=== PATIENT | female | born 1935 | race Hispanic/Latino ===

== ENCOUNTER 2018-01-01 18:03 | Inpatient (IN) | payer MEDICARE ==
[2018-01-01 18:38] LABS: Bilirubin Moderate (Negative); Blood, Urine Trace (Negative); Clarity CLEAR (Clear); Glucose, Urine (Dipstick) Negative (Negative); Leukocyte Small (Negative); Nitrite Negative (Negative); Protein, Urine (Dipstick) 100 mg/dL (Neg-Trace); Specific Gravity, Urine 1.018 (1.002-1.036)
[2018-01-01 18:40] LABS: Bacteria/HPF None Seen HPF (None Seen); Hyaline Casts/LPF 0-3 HYALINE CAST LPF (0-3 Hyaline); Pathc Cast-AUWi Flag 0.14 (0-2.49); Squamous Epithelial None Seen HPF (0-3); WBC/HPF 0-3 HPF (0-3)
[2018-01-01 18:49] LABS: CKMB 2.1 ng/mL (0-6.6); Troponin I Less than 0.010 ng/mL (< 0.028)
--- NOTE | 2018-01-01 18:49 | CT ---
CT BRAIN 01/01/18 HISTORY: Altered mental status. Noncontrast enhanced CT images of the brain obtained. Noncontrast enhanced CT images of the brain obt ained. There is mild cortical atrophy and deep white matter ischemic changes. No evidence of acute in tracranial masses, hemorrhages, strokes or contusions seen. IMPRESSION: Mild cortical atrophy, otherwise unremarkable CT brain. POS: [facility]
[2018-01-01 18:54] LABS: ALT (SGPT) 149 U/L (8-55); AST (SGOT) 99 U/L (5-34); Alkaline Phosphatase 247 U/L (40-150); Anion Gap 16 mmol/L (10-20); BUN (Urea Nitrogen) 15 mg/dL (9.8-20.1); Bilirubin, Total 4.5 mg/dL (0.2-1.2); Calc. Creatinine Clearance 0 mL/min (70-130); Calcium 9.5 mg/dL (7.8-10.44); Carbon Dioxide 26 mmol/L (23-31); Chloride 97 mmol/L (98-107); Estimated GFR-MDRD 74; Globulin 3.5 g/dL (2.4-3.5); Glucose 170 mg/dL (83-110); Potassium 3.8 mmol/L (3.5-5.1); Protein, Total 7.5 g/dL (6.0-8.3); Sodium 135 mmol/L (136-145)
[2018-01-01 18:56] LABS: Band 11 % (5-11); Hemoglobin 14.3 g/dL (12.0-16.0); Lymphocytes 3 % (21-51); MDiff Complete? YES; Mean Corpuscular Volume 94.3 fL (78.0-98.0); Mean Platelet Volume 9.5 fL (7.4-10.4); Monocytes 1 % (0-10); Neutrophil 85 % (42-75); PLT Morphology Comment Appears Adequate; Platelet Count 148 thou/uL (130-400); RBC Distribution Width 12.7 % (11.5-14.5); RBC Morphology Normal; Red Blood Cell (RBC) Count 4.45 mill/uL (4.20-5.40); White Blood Cell (WBC) Count 9.4 thou/uL (4.8-10.8)
--- NOTE | 2018-01-01 19:07 | RAD ---
AP VIEW CHEST: 01/01/18 HISTORY: Altered mental status. AP view chest is obtained and demonstrates the lungs to be well aerated. No evidence of active intrat horacic disease seen. No evidence of effusions, pneumonia or pneumothorax seen. IMPRESSION: Unremarkable AP view chest. POS: [facility]
[2018-01-01] MEDS ORDERED: Sodium Chloride 0.9% 100 ML ONE (20:14)
[2018-01-01] MEDS ORDERED: Piperacillin/Tazobactam 4.5 GM VIAL ONE (20:14)
--- NOTE | 2018-01-01 20:38 | ULT ---
RIGHT UPPER QUADRANT ULTRASOUND: 01/01/18 HISTORY: Abdominal pain. Sepsis, altered mental status. Elevated liver function enzymes. Multiple longitudinal and transverse images of the right upper quadrant of the abdomen is obtained us ing a multihertz curvilinear transducer. Real time and color flow images demonstrate moderate degree of intrahepatic biliary dilatation. The common bile duct is markedly dilated measuring 1.6 cm in diam eter. The gallbladder is enlarged and thickened with debris within it compatible with gallbladder sludge. P ericholecystic fluid is seen. Findings concerning for acute cholecystitis. The pancreas is unremarkable. The right kidney is unremarkable with no evidence of dilation or obstruction. IMPRESSION: 1. Findings concerning for cholecystitis with gallbladder sludge and pericholecystic fluid. 2. Common bile duct dilatation concerning for distal common bile duct calculus. The gallbladder wall is also thickened measuring 8 mm in thickness. POS: [facility]
[2018-01-01 22:42] VITALS: BMI 19.3
[2018-01-01] MEDS ORDERED: Senokot S 8.6-50 MG TAB PO PRN (22:51)
[2018-01-01] MEDS ORDERED: Bisacodyl 5 MG TAB PO PRN (22:51)
[2018-01-01] MEDS ORDERED: Acetaminophen 325 MG TAB PO PRN (22:51)
[2018-01-01] MEDS ORDERED: Ondansetron PF 4 MG/2 ML Vial IVP PRN (22:51)
[2018-01-01 23:21] LABS: Lactic Acid 1.4 mmol/L (0.5-2.2)
--- NOTE | 2018-01-01 23:21 | PDOC.EVN ---
Event Note - Event Note Event Note: h&p dictated [id number]
[2018-01-01] MEDS: Sodium Chloride 0.9% 1,000 ML IV SCH (23:45)
--- NOTE | 2018-01-01 23:55 | HP ---
PRIMARY CARE PHYSICIAN: The patient does not have a PCP. CHIEF COMPLAINT: Altered mental status. HISTORY OF PRESENT ILLNESS: This is an 82-year-old female who was brought in by family after a iyer e in mental status over the last 2 days. The patient herself is an extremely poor historian and unab le to provide much of a history. At the time of my evaluation, the patient's family has already left the bedside and so the history is predominantly derived from both the patient's ER record and also from the patient herself. It appears that the patient has family that typically checks in with her daily and at baseline, she l zaki home alone, is quite functional, and able to care for her own ADLs. She was brought in after warren alexander found her most recently "sprawled out on the couch" and providing nonsensical answers to their q uestions, which is atypical for her. In the Emergency Department, she has displayed more of the same behavior, although the patient's fami ly states that she is somewhat more lucid compared to when they first found her. In the Emergency Department, the patient has vague complaints of abdominal discomfort, but otherwise no focal complaints. REVIEW OF SYSTEMS: Essentially unable to obtain from the patient as she is an overall very poor hist orian. PAST MEDICAL HISTORY: The patient does not see a PCP and so therefore has no documented chronic medi aurora issues. PAST SURGICAL HISTORY: It appears that she has had wrist fractures in the past, but otherwise no lu geries. HOME MEDICATIONS: The patient does not take any home medications. ALLERGIES: The patient has no known drug allergies. FAMILY HISTORY: Significant for cancer, undetermined type; and myocardial infarction that is in the family. SOCIAL HISTORY: As per above. No alcohol, no tobacco, no illicit drug use. PHYSICAL EXAMINATION: GENERAL: The patient is awake, alert, conversant, verbalizes, answers yes or no somewhat appropriate ly, but is unable to provide much of a history. When asked to answer nonbinary questions, tends to g latrice either inappropriate or inaccurate answers. HEENT: Normocephalic, atraumatic. Dry mucous membranes. Equal ocular motions are intact. CARDIOVASCULAR: S1, S2. Faint 2/5 systolic ejection murmur at the right sternal border. No radiati on. Pulses 2+ bilateral upper extremities. No pitting pedal edema. RESPIRATORY: Reasonable air movement. No wheezes, rales, or rhonchi. ABDOMEN: Positive bowel sounds. Soft, nontender grossly to palpation. MUSCULOSKELETAL: Moving 4 extremities independently. LABORATORY DATA AND IMAGING: Significant for WBC 9.4, hemoglobin 14.3, hematocrit 42, platelets 148. Sodium 135, potassium 3.8, chloride 97, BUN 15, creatinine 0.75, glucose 170, lactic acid 3.2, calc ium 9.5, total bilirubin 4.5, AST 99, ALT 149, alkaline phosphatase 247. Troponin is less than 0.01. Total protein 7.5, albumin 4. UA is significant for an orange color, 100 of protein, trace blood, moderate bilirubin, 4 urobilinogen, small leukocyte esterase. IMAGIN. 01/01/[address] impression: "Mild cortical atrophy," otherwise unremarkable CT brain. 2. chest x-ray impression: Unremarkable AP view chest. 3. 01/01/2018 abdominal ultrasound impression: Findings concerning for cholecystitis with gallbladd er sludge and pericholecystic fluid. Common bile duct dilatation concerning for distal common bile d uct calculus. The gallbladder wall is also thickened measuring 8 mm in thickness. ASSESSMENT AND PLAN: An 82-year-old female being brought in for altered mental status. 1. Altered mental status with a broad differential. Concerned that it represents perhaps metabolic encephalopathy and/or delirium-type process on top of what the patient's family has been describing a s chronic dementia and increased forgetfulness over the last year. Initial CT of the brain has been otherwise negative. Continue with hydration, supportive management of suspected underlying issues. 2. Concern for cholecystitis. The patient does not have leukocytosis, but does have increased neutr ophilia and increased lactic acid with a concerning ultrasound of the abdomen imaging. I appreciate Gastroenterology consultation. I appreciate surgical consultation. The patient will be n.p.o. Con tinue with IV fluids. Empiric antibiotics with Zosyn at this point in time. Also, concern for trans aminitis. The patient will have a repeat lactic acid obtained and a CT of the abdomen with and witho ut oral contrast. 3. Elevated neutrophil. Please see the discussion above with empiric antibiotics, IV fluid, and oth erwise supportive management. We will repeat a lactic acid as well. 4. Concern for dementia raised by the patient's family. The patient without any acute CVA process a t this point in time. At the time of discharge, she will likely benefit from an outpatient further e xamination of her baseline neurological status. 5. Diet: As tolerated. Activity: Out of bed to a chair at least 3 times a day. Deep venous throm bosis prophylaxis with heparin. Thank you for asking me to care for the patient. For questions or concerns, contact me at [facility]. The patient's code status was discussed with her brother at bedside in the Emergency De partment by the ER team. The patient's brother is her medical power of rn mobile. The patient's brot her wishes that she be FULL CODE at this point in time.
[2018-01-02 00:01] LABS: Lipase Less than 4 U/L (8-78)
[2018-01-02 04:54] LABS: #Lymphocytes 0.2 thou/uL (1.20-3.40); #Monocytes 0.4 thou/uL (0.11-0.59); #Neutrophils 7.3 thou/uL (1.40-6.50); %Eosinophils 0.1 % (0.0-10.0); %Lymphocytes 2.7 % (21.0-51.0); %Monocytes 5.2 % (0.0-10.0); %Neutrophils 92.1 % (42.0-75.0); Hemoglobin 11.9 g/dL (12.0-16.0); Mean Corpuscular HGB CONC 33.2 g/dL (32.0-36.0); Mean Corpuscular Hemoglobin 31.6 pg (27.0-31.0); Mean Corpuscular Volume 95.3 fL (78.0-98.0); Mean Platelet Volume 9.5 fL (7.4-10.4); Platelet Count 118 thou/uL (130-400); RBC Distribution Width 12.7 % (11.5-14.5); Red Blood Cell (RBC) Count 3.77 mill/uL (4.20-5.40); White Blood Cell (WBC) Count 7.9 thou/uL (4.8-10.8)
[2018-01-02 05:06] LABS: ALT (SGPT) 98 U/L (8-55); AST (SGOT) 53 U/L (5-34); Albumin 3.1 g/dL (3.4-4.8); Alkaline Phosphatase 185 U/L (40-150); Anion Gap 12 mmol/L (10-20); BUN (Urea Nitrogen) 12 mg/dL (9.8-20.1); Bilirubin, Total 3.6 mg/dL (0.2-1.2); Calc. Creatinine Clearance 46 mL/min (70-130); Calcium 8.5 mg/dL (7.8-10.44); Carbon Dioxide 23 mmol/L (23-31); Chloride 105 mmol/L (98-107); Estimated GFR-MDRD 83; Globulin 2.6 g/dL (2.4-3.5); Glucose 126 mg/dL (83-110); Potassium 3.1 mmol/L (3.5-5.1); Protein, Total 5.7 g/dL (6.0-8.3); Sodium 137 mmol/L (136-145)
[2018-01-02] MEDS: Piperacillin/Tazobactam 3.375 GM in Sodium Chloride 0.9% 100 ML IVPB SCH ×4 (05:19→23:43)
--- NOTE | 2018-01-02 07:58 | CON ---
DATE OF CONSULTATION: 01/02/2018. REQUESTING PHYSICIAN: Dr. Ted Gardner. REASON FOR CONSULTATION: Choledocholithiasis. HISTORY OF PRESENT ILLNESS: Ms. Anayeli Pal is an 82-year-old woman who evidently lives independently and is quite active. She has no known past medical or surgical history, never sees a doctor. Evide ntly at baseline, her mental status is quite good. She was admitted to the hospital last night with reports of 2 days of altered mental status, lying around the house and speaking nonsense which were a t her family. The only other symptom she or they could describe is some vague abdominal pain over th e past couple of days as well and evidently she had had some episodes of vomiting. Upon presentation , she was found to have elevated LFTs with total bilirubin up to 4.5 and ALT up to 149. An abdominal ultrasound last night demonstrated changes consistent with cholecystitis as well as choledocholithia sis. She has common bile duct dilation to 1.6 cm with moderate intrahepatic biliary dilation, gallbl adder wall thickening to 8 mm and pericholecystic fluid with gallbladder sludge. CT head showed only mild cortical atrophy. She has been hemodynamically stable and afebrile. She was started on Zosyn. This morning, she does not really complaining of any abdominal pain, but she remains tender to palp ation of the right upper quadrant. PAST MEDICAL HISTORY: Nothing significant, as the patient never sees the doctor. ALLERGIES: No known drug allergies. OUTPATIENT MEDICATIONS: None. SOCIAL HISTORY: She lives independently with family nearby. She is evidently very active. No smoki ng, alcohol, or drug use. FAMILY HISTORY: Unknown cancer. REVIEW OF SYSTEMS: Full review of systems including constitutional, head, eyes, ears, nose, throat, GI, , cardiovascular, respiratory, musculoskeletal, and neurologic systems is negative except as no bon in the HPI. PHYSICAL EXAMINATION: VITAL SIGNS: Temperature 98.3, pulse 66, blood pressure 103/59, 98% oxygen saturation on room air. GENERAL: This is an 82-year-old woman lying in bed comfortably in no acute distress. SKIN: Mild jaundice, no rash visible or palpable. EYES: Mild scleral icterus. Extraocular movements intact. ENT: Mucous membranes moist, no oral lesions. LYMPH: No submandibular or supraclavicular lymphadenopathy. THYROID: Nontender to palpation. HEART: Regular rate and rhythm. LUNGS: Clear to auscultation bilaterally. ABDOMEN: Nondistended. Bowel sounds are hypoactive, but present. Soft. She is tender to palpation in the right upper quadrant. There is no guarding or rebound tenderness. EXTREMITIES: No peripheral edema. VESSELS: Radial pulses 2+ bilaterally. NEUROLOGICAL: Cranial nerves II through XII intact bilaterally. No focal deficits. MENTAL: She is oriented to person. She can give me her date of . She cannot tell me where she is or what day it is. She really does not recall any significant details of her recent history. LABORATORY STUDIES: WBC 7.9, hemoglobin 11.9, platelets 118, BUN 12, creatinine is 0.68, total bilir ubin initially 4.5, now down to 3.6, alkaline phosphatase initially 247, now down to 185, AST initial ly 99, now down to 53, ALT 149, now down to 98, albumin 3.1. Urinalysis showing 0-3 WBCs. IMAGING STUDIES: Abdominal ultrasound showed changes of cholecystitis with gallbladder sludge, peric holecystic fluid and gallbladder wall thickening. The common bile duct is dilated to 1.6 cm, which i s concerning for choledocholithiasis and there is moderate intrahepatic biliary dilation. CT of the head showed mild cortical atrophy. Chest x-ray showed no acute processes. ASSESSMENT AND PLAN: 1. Choledocholithiasis. 2. Cholecystitis. 3. Altered mental status, presumably secondary to acute cholecystitis. The patient's prominent elev ation in LFTs combined with the clear biliary dilation on imaging, all give a high probability for ch oledocholithiasis as well as cholecystitis. I discussed the situation with the patient's nephew on t he phone. I think the patient is going to end up needing a cholecystectomy with preoperative endosco pic retrograde cholangiopancreatography to clear the common bile duct. I discussed the potential ris ks of endoscopic retrograde cholangiopancreatography including post- endoscopic retrograde cholangiop ancreatography pancreatitis. She is in agreement that we should proceed. We are awaiting surgical c onsultation. I will go ahead and plan to take her for endoscopic retrograde cholangiopancreatography probably later today. Remain n.p.o. for now. Thank you for the consultation. Please call any time with questions or concerns.
[2018-01-02] MEDS: Famotidine/PF 20 mg/2ml Vial SLOW IVP SCH ×2 (08:51→20:15)
[2018-01-02] MEDS: Heparin 5,000 UNITS/ML VIAL SC SCH ×3 (08:51→20:16)
[2018-01-02] MEDS ORDERED: Prevnar 13-Val Conj/PF 0.5 ML SYRINGE IM ONE (09:00)
--- NOTE | 2018-01-02 09:12 | CT ---
CT OF ABDOMEN AND PELVIS PERFORMEDF WITH INTRAVNEOUS CONTRAST ENHANCEMENT: HISTORY: Abdominal pain. COMPARISON: Comparison a gallbladder ultrasound done earlier today. FINDINGS: Lung bases show chronic interstitial lung change. The liver has a heterogeneous appearance. I think some of this is probably related to a slightly art erial phase the contrast enhancement was obtained in. There is a suggestion of some minimal periport al edema. In addition, there is some intra- and extrahepatic ductal dilatation. The gallbladder is distended. There are edema changes associated with the gallbladder wall and there was probably some fluid within the gallbladder fossa. The proximal portion of the extrahepatic bile duct is very dilat ed at 13-14 mm and there is a soft tissue density seen within the mid common duct which measures 12 m m in size. It does not have the typical density we would expect of a gallstone of this size but appe ars fairly well formed and may represent a stone. The common duct does taper to a slightly more norm al-caliber distal to this. In addition, there is what appears to be a dilated cystic duct which appe ars to insert more distally on the common bile duct. The pancreas is severely atrophic. There is a cystic area within the body of this very atrophic pancreas which could be related to focal dilatation of the pancreatic duct. It measures 9 mm in size. Cystic neoplasm of the pancreas is not excluded and this would warrant followup. The spleen is prominent but within normal limits of size. It is of note that the pancreatic tail is relatively normal in appearance in relation to the head and body region of the pancreas. Within the expected location of the uncinate process, there is an air collection. I believe this is probably a diverticula arising from the duodenum. Right and left adrenal glands and right and left kidneys are normal in size. There is no significant periaortic or mesenteric adenopathy. A slightly swirled pattern to the mesenteric vessels is seen. No evidence of any type of obstruction. There may be some type of internal hernia present. CT OF PELVIS PERFORMED WITH COTNRAST ENHANCEMENT: A moderate amount of stool is seen in the rectosigmoid region. Calcified fibroid is noted within a s mall uterus. Appendix is difficult to definitively identify. IMPRESSION: 1. Fairly markedly distended gallbladder with what appears to be some gallbladder wall edema and int ra- and extrahepatic ductal dilatation. Within the extrahepatic bile duct at mid duct level is a 12 mm soft tissue-like density which could represent some tumefactive sludge versus a stone. You would expect a stone to be slightly denser given the size, but I would still not exclude this possibility. The duct does taper to a more normal-caliber distal to this. In addition, there appears to be mildl y dilated cystic duct and the cystic duct appears to have a lower insertion on the common bile duct. There is a small 1 cm fairly prominently enhancing lymph node adjacent to the gallbladder neck of in cidental note. 2. A very atrophic appearance to the pancreatic head and body region; however, there is a relatively normal appearance to the tail region of the pancreas. There is what I believe to be some chronic ar eas of cystic dilatation of the common bile duct. Most prominent is the 9-10 m area in the body serina on. I think a cystic neoplasm of the pancreas would be less likely, but not excluded. 3. Air density is seen in the expected area of the uncinate process. I believe this is probably wit hin the diverticulum. 4. Suggestion of some minimal periportal edema change. POS: [facility]
--- NOTE | 2018-01-02 10:02 | PDOC.PN ---
- Subjective Encounter Start Date: 01/02/18 Encounter Start Time: 07:30 Subjective: still has ruq pain, no nausea or itching - Objective Resuscitation Status: Resuscitation Status FULL:Full Resuscitation MAR Reviewed: Yes Vital Signs & Weight: Vital Signs (12 hours) Temp Pulse Resp BP Pulse Ox 01/02/18 08:57 96 01/02/18 08:20 98.4 F 62 16 125/54 L 96 01/02/18 04:00 98.3 F 66 18 103/59 L 98 Weight Weight 99 lb 3.328 oz Result Diagrams: 01/02/18 04:13 01/02/18 04:13 Phys Exam - Physical Examination HEENT: PERRLA, moist MMs Neck: no JVD, supple Respiratory: no wheezing, no rales Cardiovascular: RRR, no significant murmur Gastrointestinal: soft, no distention, positive bowel sounds ruq tenderness, localized guarding no rigidity Musculoskeletal: no edema, pulses present Neurological: non-focal, moves all 4 limbs Psychiatric: A&O x 3 Dx/Plan (1) Choledocholithiasis with acute cholecystitis Code(s): K80.42 - CALCULUS OF BILE DUCT W ACUTE CHOLECYSTITIS W/O OBSTRUCTION Status: Acute (2) Acute encephalopathy Code(s): G93.40 - ENCEPHALOPATHY, UNSPECIFIED Status: Acute (3) DM type 2 (diabetes mellitus, type 2) Status: Chronic Qualifiers: Diabetes mellitus keno terminal operator insulin use: without residential use Diabetes mellitus complication status: with unspecified complications Qualified Code(s) : E11.8 - Type 2 diabetes mellitus with unspecified complications (4) SIRS (systemic inflammatory response syndrome) Code(s): R65.10 - SIRS OF NON-INFECTIOUS ORIGIN W/O ACUTE ORGAN DYSFUNCTION Status: Acute - Plan is on zosyn, npo -: for ercp today, likely lap jordan in am -: gentle iv fluids -: t.bili is 3.6, has 92% neutrophils -: oob to chair as tolerated * . Review of Systems - Medications/Allergies Allergies/Adverse Reactions: Allergies Allergy/AdvReac Type Severity Reaction Status Date / Time No Known Drug Allergies Allergy Unknown Verified 01/01/18 23:35 Medications: Current Medications Acetaminophen (Tylenol) 650 mg PO Q4H PRN PRN Reason: Headache/Fever/Mild Pain (1-3) Bisacodyl (Dulcolax) 10 mg PO DAILYPRN PRN PRN Reason: Constipation Famotidine (Pepcid) 20 mg SLOW IVP Q12HR [facility] Last Admin: 01/02/18 08:51 Dose: 20 mg Heparin Sodium (Porcine) (Heparin) 5,000 units SC TID [facility] Last Admin: 01/02/18 08:51 Dose: Not Given Piperacillin Sod/Tazobactam (Sod 3.375 gm/ Sodium Chloride) 100 mls @ 200 mls/ hr IVPB Q6HR [facility] Last Admin: 01/02/18 05:19 Dose: 100 mls Sodium Chloride (Normal Saline 0.9%) 1,000 mls @ 100 mls/hr IV .Q10H [facility] Last Admin: 01/01/18 23:45 Dose: 1,000 mls Ondansetron HCl (Zofran) 4 mg IVP Q6H PRN PRN Reason: Nausea/Vomiting Senna/Docusate Sodium (Senokot S) 2 tab PO BIDPRN PRN PRN Reason: Constipation Sodium Chloride (Flush - Normal Saline) 10 ml IVF Q12HR [facility] Last Admin: 01/02/18 08:52 Dose: Not Given Sodium Chloride (Flush - Normal Saline) 10 ml IVF PRN PRN PRN Reason: Saline Flush Last Admin: 01/01/18 23:46 Dose: 10 ml
--- NOTE | 2018-01-02 11:21 | CON ---
DATE OF CONSULTATION: 01/02/2018 GENERAL SURGERY CONSULTATION CHIEF COMPLAINT: Right upper quadrant abdominal pain. HISTORY OF PRESENT ILLNESS: This is an 82-year-old female who reports a 4-5 day history of some abdo lucius pain, chills, fever. She was found to be very lethargic and brought in by her family last nigh t. PAST MEDICAL HISTORY: Significant for otherwise being healthy. PAST SURGICAL HISTORY: She has had a wrist fracture in the past. MEDICATIONS: None. ALLERGIES: No known drug allergies. FAMILY HISTORY: Cancer and myocardial infarctions. SOCIAL HISTORY: She lives alone. No tobacco or alcohol. PHYSICAL EXAMINATION: GENERAL: She is a thin, frail female, somewhat confused. VITAL SIGNS: Her temperature is 98.4, pulse 62, blood pressure 125/54, a thin female in minimal dist ress. HEENT: She is jaundiced. LUNGS: Clear. HEART: Regular rate and rhythm. ABDOMEN: Soft, very tender in the right upper quadrant with a positive Meadows sign. EXTREMITIES: Unremarkable. LABORATORY DATA AND IMAGING DATA: Her white count is 7.9, hemoglobin and hematocrit 11 and 36, plate let count of 118,000. Electrolytes show a bilirubin of 4.5, AST 99, ALT of 149, alkaline phosphatase 247. Sodium is 137, potassium 3.1. Amylase is normal. Ultrasound shows probable thickened gallbla dder wall with gallstones and sludge. There is pericholecystic fluid. Also, she has a dilated commo n bile duct with a probable common bile duct calculus. ASSESSMENT: Acute cholecystitis with choledocholithiasis. PLAN: She is getting an ERCP today, laparoscopic cholecystectomy tomorrow. CONSENT: I have discussed the planned procedure with her family and the patient. She understands th e risk of bleeding, infection, injury to bile duct or bowel, need to open. They give informed consen t.
[2018-01-02] MEDS: Sodium Chloride 0.9% 1,000 ML IV SCH ×2 (11:33→18:00)
[2018-01-02] MEDS ORDERED: Iothalamate Meglumine 60% 50 ML VIAL FS ONE (13:31)
[2018-01-02] MEDS ORDERED: B & O ONE (13:32)
[2018-01-02] MEDS ORDERED: Fentanyl 100 MCG/2 ML VIAL ONE (13:49)
[2018-01-02] MEDS ORDERED: ePHEDrine/0.9% NaCl/PF SYRINGE 50 mg/10 ml ONE (14:35)
[2018-01-02] MEDS ORDERED: Ondansetron PF 4 MG/2 ML Vial ONE (14:35)
[2018-01-02] MEDS ORDERED: Lidocaine 1% PF 5 ML VIAL ONE (14:35)
[2018-01-02] MEDS ORDERED: PROPOFOL 200 MG/20 ML VIAL ONE (14:35)
[2018-01-02] MEDS ORDERED: Glycopyrrolate 0.2 MG/ML 5 ML SYRINGE ONE (14:35)
--- NOTE | 2018-01-02 15:44 | RAD ---
ERCP: HISTORY: Evaluation for bile duct calculus. FINDINGS: This is a limited examination. A single view is presented for interpretation and shows a contrast in jection at the dilated duct. There appears to be a filling defect in the mid common bile duct. IMPRESSION: Probable filling defect at the mid common bile duct. POS: [facility]
--- NOTE | 2018-01-02 19:00 | OP ---
DATE OF PROCEDURE: 01/02/2018 GI ENDOSCOPY NOTE SURGEON: Rod Bellamy M.D. CYLINDER MACHINE OPERATOR SURGEON: None. PROCEDURES: Endoscopic retrograde cholangiopancreatography with biliary sphincterotomy and balloon e xtraction of sludge and stones from the common bile duct. INDICATIONS: 1. Choledocholithiasis. 2. Cholecystitis. MEDICATIONS: See anesthesia record. FINDINGS: After discussion of the risks, benefits and alternatives of the procedure, informed consen t was obtained and witnessed. Pre-endoscopic cardiopulmonary examination was satisfactory. Timeout was performed before sedation was achieved. Sedation was achieved with anesthesia assistance in the endoscopy unit. The patient was placed in a prone position on the fluoroscopy table. A Pentax adult side-viewing duodenoscope was advanced beyond the esophagus and stomach and into the second portion of the duodenum. The ampulla was brought into view with the endoscope in the short position. The pa tient's ampulla was quite small and is also recessed within a small diverticulum. However, I was sti ll able to easily cannulate the common bile duct using a triple lumen dome tip sphincterotome 0.035 g uidewire. The guidewire initially had difficulty getting up to the level of the bifurcation. A bili krunal cholangiogram was performed and demonstrated extensive filling defects with multiple stones and c opious sludge essentially filling up the entire common bile duct all the way to the bifurcation. At this point, a biliary sphincterotomy was performed without difficulty. The sphincterotome was then e xchanged for initially 9-12 mm extraction balloon. Multiple passes were made of the distal common bi le duct with the balloon partially and fully inflated. In this fashion, we were only able to extract a small amount of biliary sludge. After more repositioning efforts, we were eventually able to get the guidewire all the way beyond to the level of the bifurcation into the right intrahepatic ductal s ystem. At this point, the balloon was able to be passed all the way to the bifurcation and multiple balloon sweeps were made. In this fashion, we were able to extract a copious amount of sludge and mu ltiple small to large stones from the common bile duct. Multiple sweeps were made with the balloon p artially and fully inflated. We then exchanged the balloon for a 12-15 mm balloon and made more swee ps extracting more stones and sludge. The common bile duct was then irrigated with 15 mL of sterile water. One final balloon sweep was made with no further sludge extracted. At this point, the workin g apparatus was completely withdrawn. The endoscope was completely withdrawn sectioning out excess a ir and fluid. The patient tolerated the procedure well. There were no immediate post-procedure comp lications. IMPRESSION: Choledocholithiasis, with extensive stones and sludge filling up the entire common bile duct, now status post successful biliary sphincterotomy and balloon extraction of copious stones and sludge. RECOMMENDATIONS: 1. Follow up and monitor for post-ERCP complications including post-ERCP pancreatitis. 2. Cholecystectomy is planned for tomorrow.
[2018-01-03] MEDS: Sodium Chloride 0.9% 1,000 ML IV SCH ×3 (06:10→21:37)
[2018-01-03] MEDS: Piperacillin/Tazobactam 3.375 GM in Sodium Chloride 0.9% 100 ML IVPB SCH ×4 (06:11→23:39)
[2018-01-03] MEDS: Famotidine/PF 20 mg/2ml Vial SLOW IVP SCH ×2 (07:34→21:38)
[2018-01-03] MEDS: Heparin 5,000 UNITS/ML VIAL SC SCH (07:34)
--- NOTE | 2018-01-03 08:21 | PRG ---
DATE OF SERVICE: 01/03/2018 SUBJECTIVE: Ms. Pal mental status remains altered, but she is in a pleasant mood. She is not comp laining of any pain. She evidently had a good night last night following her ERCP. She is going ivana n for a cholecystectomy this morning. OBJECTIVE: VITAL SIGNS: Temperature 98.0, blood pressure 158/68, pulse 53, 97% oxygen saturation on room air. GENERAL: No acute distress. HEART: Regular rate and rhythm. LUNGS: Clear to auscultation bilaterally. ABDOMEN: Bowel sounds hypoactive, soft, mild tenderness to palpation. EXTREMITIES: No peripheral edema. LABORATORY STUDIES: No new labs this morning. ASSESSMENT AND PLAN: 1. Choledocholithiasis, now status post successful endoscopic retrograde cholangiopancreatography wi th biliary sphincterotomy and balloon extraction of copious amounts of stones and sludge from the com mon bile duct. 2. Acute cholecystitis. The patient is going down for cholecystectomy this morning. I see no evide nce of complications of the ERCP. GI will sign off at this time, but please call back anytime with questions or concerns.
[2018-01-03] MEDS ORDERED: Fentanyl 100 MCG/2 ML VIAL ONE ×2 (08:53→10:18)
[2018-01-03] MEDS ORDERED: Lidocaine 2% Jelly 5 ML TUBE ONE (08:53)
[2018-01-03] MEDS ORDERED: hydrALAZINE 20 MG/ML VIAL SLOW IVP PRN (10:08)
[2018-01-03] MEDS ORDERED: HYDROcodone/Acetaminophen 10/325 mg Tablet PO PRN ×2 (10:08)
[2018-01-03] MEDS ORDERED: Calcium Carbonate 500 MG ChewTAB PO PRN (10:08)
[2018-01-03] MEDS ORDERED: Mag-Al 1200 mg/1200 mg/30 ML UDCUP PO PRN (10:08)
[2018-01-03] MEDS ORDERED: Promethazine HCl 25 MG/ML VIAL IM PRN ×2 (10:08→10:11)
[2018-01-03] MEDS ORDERED: Dextrose 5% in Water 1,000 ML IV PRN (10:08)
[2018-01-03] MEDS ORDERED: Ondansetron PF 4 MG/2 ML Vial IVP PRN (10:08)
[2018-01-03] MEDS ORDERED: Dextrose 50% Abboject 50 ML SYRINGE SLOW IVP PRN (10:08)
[2018-01-03] MEDS ORDERED: Promethazine HCl 25 MG/ML VIAL SLOW IVP PRN (10:11)
[2018-01-03] MEDS ORDERED: Ondansetron HCl/PF 4 MG/2 ML Vial IVP PRN (10:11)
[2018-01-03] MEDS ORDERED: Bupivacaine/Epinephrine 0.25% 30 ML VIAL ONE (10:16)
--- NOTE | 2018-01-03 10:31 | OP ---
PREOPERATIVE DIAGNOSIS: Acute cholecystitis. SURGEON: Huy Dillard M.D. PROCEDURE PERFORMED: Laparoscopic cholecystectomy. INDICATIONS: This is an 82-year-old female, who came in with severe right upper quadrant pain. Ultr asound showing thickened gallbladder wall and gallstones and a dilated common bile duct. She underwe nt an ERCP with stone extraction yesterday. FINDINGS: Thickened gallbladder wall, containing a lot of edema. PROCEDURE: After informed consent was obtained, the patient was taken to the operating room and give n general endotracheal anesthesia. She was placed in the supine position. Abdomen was prepped and d raped in usual fashion. Local anesthesia infiltrated subcutaneously and deep. Subumbilical incision was performed. Subcu divided sharply. The fascia grasped and two stay sutures of 0 Vicryl placed t hrough either side of midline. Midline incised. Digital palpation revealed no local adhesions. A b louise 10-12 mm trocar inserted. Pneumoperitoneum was created to a pressure of 15 mmHg. A 0-degree la paroscope inserted under direct vision, three 5-mm ports were placed subcostally. There were a lot o f adhesions of omentum around the gallbladder. These were taken down sharply with electrocautery. T he gallbladder was distended and thickened. An aspirating needle was inserted and 120 mL of bile rem keerthi from the gallbladder. The gallbladder grasped and advanced superiorly. The peritoneum dissecte d to expose the cystic duct artery. The cystic duct was dilated. The artery triply ligated with Hem oclips and divided. I was able to get 3 Hemoclips completely across the duct. Then the cystic duct divided. The gallbladder was removed from its fossa utilizing electrocautery. It was placed in an E ndosac and removed from the abdomen in the Endosac. Hemostasis was assured. Trocars and retractors removed. The fascia closed with interrupted 0 Vicryl suture. The skin closed with interrupted 4-0 R apide. Dermabond applied. Patient tolerated the procedure well and was transferred to recovery in g ood condition. Sponge and needle count verified correct x2.
[2018-01-03] MEDS: Ketorolac Tromethamine 30 MG/ML VIAL IVP SCH ×3 (11:31→23:34)
[2018-01-03] MEDS ORDERED: Ondansetron PF 4 MG/2 ML Vial ONE (14:50)
[2018-01-03] MEDS ORDERED: Dexamethasone 20 MG/5 ML VIAL ONE (14:50)
[2018-01-03] MEDS ORDERED: PROPOFOL 200 MG/20 ML VIAL ONE (14:50)
[2018-01-03] MEDS ORDERED: Glycopyrrolate 0.2 MG/ML 5 ML SYRINGE ONE (14:50)
[2018-01-03] MEDS ORDERED: Lidocaine 1% PF 5 ML VIAL ONE (14:50)
[2018-01-03] MEDS ORDERED: Lorazepam 2 MG/ML VIAL SLOW IVP SCH (15:45)
[2018-01-03] MEDS: Famotidine 20 MG TAB PO SCH (21:38)
[2018-01-04 04:56] LABS: #Lymphocytes 0.7 thou/uL (1.20-3.40); #Monocytes 0.5 thou/uL (0.11-0.59); #Neutrophils 5.9 thou/uL (1.40-6.50); %Eosinophils 0.4 % (0.0-10.0); %Lymphocytes 9.7 % (21.0-51.0); %Monocytes 7.1 % (0.0-10.0); %Neutrophils 82.9 % (42.0-75.0); Hemoglobin 11.1 g/dL (12.0-16.0); Mean Corpuscular Hemoglobin 31.7 pg (27.0-31.0); Mean Corpuscular Volume 95.8 fL (78.0-98.0); Platelet Count 137 thou/uL (130-400); RBC Distribution Width 12.7 % (11.5-14.5); Red Blood Cell (RBC) Count 3.51 mill/uL (4.20-5.40); White Blood Cell (WBC) Count 7.1 thou/uL (4.8-10.8)
[2018-01-04 05:09] LABS: ALT (SGPT) 54 U/L (8-55); AST (SGOT) 21 U/L (5-34); Albumin 2.7 g/dL (3.4-4.8); Alkaline Phosphatase 193 U/L (40-150); Anion Gap 8 mmol/L (10-20); BUN (Urea Nitrogen) 20 mg/dL (9.8-20.1); Bilirubin, Total 1.3 mg/dL (0.2-1.2); Calc. Creatinine Clearance 43 mL/min (70-130); Calcium 8.3 mg/dL (7.8-10.44); Carbon Dioxide 26 mmol/L (23-31); Chloride 106 mmol/L (98-107); Estimated GFR-MDRD 77; Globulin 2.3 g/dL (2.4-3.5); Glucose 100 mg/dL (83-110); Lipase Less than 4 U/L (8-78); Potassium 3.6 mmol/L (3.5-5.1); Sodium 136 mmol/L (136-145)
[2018-01-04] MEDS: Ketorolac Tromethamine 30 MG/ML VIAL IVP SCH (05:11)
[2018-01-04] MEDS: Piperacillin/Tazobactam 3.375 GM in Sodium Chloride 0.9% 100 ML IVPB SCH (05:13)
[2018-01-04] MEDS ORDERED: Enoxaparin Sodium 30 MG/0.3 ML SYRINGE SC SCH (06:00)
[2018-01-04] MEDS: Famotidine/PF 20 mg/2ml Vial SLOW IVP SCH (07:47)
--- NOTE | 2018-01-04 08:26 | PRG ---
DATE OF SERVICE: 01/04/2018 The patient is status post laparoscopic cholecystectomy. SUBJECTIVE: The patient says she feels fine. Her pain is minimal. No nausea or vomiting. She is t olerating liquids. PHYSICAL EXAMINATION: VITAL SIGNS: She is afebrile. Vital signs are fine. GENERAL: She is awake and alert. ABDOMEN: Soft, nondistended. The incisions are healing well. There is no evidence of infection or hernias. Her liver function tests are improving. ASSESSMENT: Doing well. PLAN: Okay for discharge. Follow up with me in 2 weeks.
[2018-01-04] MEDS: Famotidine 20 MG TAB PO SCH (08:27)
[2018-01-04 11:27] VITALS: BP 138/62; TEMP 97.5
--- NOTE | 2018-01-04 11:40 | PDOC.PN ---
- Subjective Encounter Start Date: 01/03/18 Encounter Start Time: 16:00 Subjective: post lap jordan, a bit confused -: no sob - Objective Resuscitation Status: Resuscitation Status FULL:Full Resuscitation MAR Reviewed: Yes Vital Signs & Weight: Vital Signs (12 hours) Temp Pulse Resp BP BP Pulse Ox 01/04/18 11:00 97.5 F L 54 L 18 138/62 98 01/04/18 08:00 93 L 01/04/18 07:51 97.6 F 56 L 18 145/68 H 93 L Weight Weight 99 lb 3.328 oz I&O: 01/03/18 01/04/18 01/05/18 06:59 06:59 06:59 Intake Total 2590 2160 240 Balance 2590 2160 240 Result Diagrams: 01/04/18 04:39 01/04/18 04:39 Phys Exam - Physical Examination HEENT: PERRLA, moist MMs Neck: no JVD, supple Respiratory: no wheezing, no rales Cardiovascular: RRR, no significant murmur Gastrointestinal: soft, no distention, positive bowel sounds Musculoskeletal: no edema, pulses present Neurological: non-focal, moves all 4 limbs Dx/Plan (1) Choledocholithiasis with acute cholecystitis Code(s): K80.42 - CALCULUS OF BILE DUCT W ACUTE CHOLECYSTITIS W/O OBSTRUCTION Status: Acute Comment: s/p lap jordan, ercp with sphincterotomy and extraction of stones/sluge (2) Acute encephalopathy Code(s): G93.40 - ENCEPHALOPATHY, UNSPECIFIED Status: Acute (3) DM type 2 (diabetes mellitus, type 2) Status: Chronic Qualifiers: Diabetes mellitus terminal operations manager insulin use: without retirement use Diabetes mellitus complication status: with unspecified complications Qualified Code(s) : E11.8 - Type 2 diabetes mellitus with unspecified complications (4) SIRS (systemic inflammatory response syndrome) Code(s): R65.10 - SIRS OF NON-INFECTIOUS ORIGIN W/O ACUTE ORGAN DYSFUNCTION Status: Acute - Plan hemostable -: gentle iv hydration -: oral diet per gen surg advice -: fall precautions -: morphine, norco prn * .
--- NOTE | 2018-01-04 11:43 | PDOC.PN ---
- Subjective Encounter Start Date: 01/04/18 Encounter Start Time: 07:45 Subjective: awake, responds well to verbal stimuli -: family at bedside - Objective Resuscitation Status: Resuscitation Status FULL:Full Resuscitation MAR Reviewed: Yes Vital Signs & Weight: Vital Signs (12 hours) Temp Pulse Resp BP BP Pulse Ox 01/04/18 11:00 97.5 F L 54 L 18 138/62 98 01/04/18 08:00 93 L 01/04/18 07:51 97.6 F 56 L 18 145/68 H 93 L Weight Weight 99 lb 3.328 oz I&O: 01/03/18 01/04/18 01/05/18 06:59 06:59 06:59 Intake Total 2590 2160 240 Balance 2590 2160 240 Result Diagrams: 01/04/18 04:39 01/04/18 04:39 Phys Exam - Physical Examination HEENT: PERRLA, moist MMs Neck: no JVD, supple Respiratory: no wheezing, no rales Cardiovascular: RRR, no significant murmur Gastrointestinal: soft, no distention, positive bowel sounds incisions are clean Musculoskeletal: no edema, pulses present Neurological: non-focal, moves all 4 limbs Dx/Plan (1) Choledocholithiasis with acute cholecystitis Code(s): K80.42 - CALCULUS OF BILE DUCT W ACUTE CHOLECYSTITIS W/O OBSTRUCTION Status: Acute Comment: s/p lap jordan, ercp with sphincterotomy and extraction of stones/sluge (2) Acute encephalopathy Code(s): G93.40 - ENCEPHALOPATHY, UNSPECIFIED Status: Acute (3) DM type 2 (diabetes mellitus, type 2) Status: Chronic Qualifiers: Diabetes mellitus fci insulin use: without exterminator termite use Diabetes mellitus complication status: with unspecified complications Qualified Code(s) : E11.8 - Type 2 diabetes mellitus with unspecified complications (4) SIRS (systemic inflammatory response syndrome) Code(s): R65.10 - SIRS OF NON-INFECTIOUS ORIGIN W/O ACUTE ORGAN DYSFUNCTION Status: Acute - Plan hemostable -: dc pt home -: to f/u with as adv -: family will closely watch her for the next 2 days -: has underlying dementia, is amb and eating well * .
--- NOTE | 2018-01-04 12:59 | DIS ---
DATE OF ADMISSION: 01/01/2018 DATE OF DISCHARGE: 01/04/2018 DISCHARGE DISPOSITION: To home. PRIMARY DISCHARGE DIAGNOSES: Choledocholithiasis with acute cholecystitis status post endoscopic ret rograde cholangiopancreatography with sphincterotomy, extraction of stones and sludge, status post la paroscopic cholecystectomy, acute encephalopathy due to above, resolved, diabetes mellitus type 2, sy stemic inflammatory response syndrome. PROCEDURES DONE DURING HOSPITALIZATION: The patient has had ERCP done by Dr. Rod Bellamy on 8 with sphincterotomy and balloon extraction of sludge and stones from the common bile duct. She had laparoscopic cholecystectomy done by Dr. Dillard on 01/03/2018. Echo with 2D Doppler showed EF of 50% -55% with moderate mitral regurgitation. No mass or vegetation was seen. Abdominal ultrasound on showed findings of cholecystitis with gallbladder sludge and pericholecystic fluid. CBD was dilated at 1.[address] of the abdomen and pelvis with contrast done showed distended gallbladder wit h gallbladder wall edema and intra and extrahepatic ductal dilatation, atrophic appearance of the dixon creatic head and body region. Urine culture, no growth. H and H 11 and 33, platelet count is 137,00 0. Discharge total bilirubin 1.3, AST 21, ALT 54, alkaline phosphatase 193. Lipase less than 4 on t he day of discharge. Admitting total bilirubin was 4.5, AST of 99, ALT 149, alkaline phosphatase 247 . DISCHARGE MEDICATIONS: Motrin p.r.n. for pain. INPATIENT CONSULTS: Dr. Rod Bellamy for Gastroenterology and Dr. Dillard for General Surgery. DISCHARGE PLAN: The patient to follow up with Dr. Dillard as advised and primary care physician in 1 w [facility]. BRIEF COURSE DURING HOSPITALIZATION: The patient initially was brought by family for change in menta l state for the last 2 days. The patient's initial lab work showed abnormal liver function tests and had imaging studies of her abdomen done, which revealed acute cholecystitis with choledocholithiasis . The patient's common bile duct was dilated. She has had consultation with Dr. Rod Bellamy and has had ERCP done with extraction of stones and sphincterotomy. She subsequently had laparoscopic cholec ystectomy the following day. Her liver function tests are all receding back to normal levels. Prior to discharge, she is ambulating in the room and tolerating oral solid diet. The patient has underly ing dementia with mild confusion at the time of discharge, but is mostly oriented. She follows [facility]. The family will closely watch her for the next 2 days at home and they prefer taking her home. Please see a [id number] documentation for the day of discharge on [employer].
[2018-01-05] MEDS ORDERED: Enoxaparin Sodium 30 MG/0.3 ML SYRINGE SC SCH (09:00)
== END 2018-01-04 11:54 | disposition home or self-care (01) | DRG 418 ==
LOC: ERS 18:03 → T4-A 22:28
PROVIDERS: ADMIT Internal Medicine; ATTEND Internal Medicine
PROC: 0FC98ZZ Extirpation of Matter from Common Bile Duct, Via Natural or Artificial Opening Endoscopic (ICD-10-PCS; 2018-01-02)
PROC: 0FT44ZZ Resection of Gallbladder, Percutaneous Endoscopic Approach (ICD-10-PCS; principal; 2018-01-03)
DX: K80.42 Calculus of bile duct with acute cholecystitis without obstruction (principal); G93.40 Encephalopathy, unspecified; R65.10 Systemic inflammatory response syndrome (SIRS) of non-infectious origin without acute organ dysfunction; E11.9 Type 2 diabetes mellitus without complications
CPT/HCPCS: 36415; 51701; 70450; 71045; 74177; 74330; 76705; 80053; 81003; 81015; 82150; 82553; 83605; 83690; 84484; 85025; 87086; 88304; 93005; 93306; 96361; 96365; J1100; J1644; J1650; J1885; J2001; J2405; J2543; J2704; J3010; J7050; Q9961; S0028